=== PATIENT | male | born 1950 | race Caucasian/White ===

== ENCOUNTER → 2017-06-15 | Outpatient (CLI) | payer BC ==
[~2017-06-15] MED LIST: REGADENOSON 0.4 MG/5 ML SYRINGE ONE
== END | disposition home or self-care (01) ==
LOC: CFH 07:28
PROVIDERS: ATTEND Internal Medicine Cardiovascular Disease
DX: R07.89 Other chest pain (principal)
CPT/HCPCS: 78452; 93017; A9502; J2785

== ENCOUNTER 2018-03-15 13:33 | Emergency (ER) | payer BC ==
[~2018-03-15] VITALS: Ht 190.5 cm; Wt 123.0 kg
[2018-03-15 15:33] LABS: BASOPHILS # (AUTO) 0.01 x10^3/uL (0-0.1); BASOPHILS % (AUTO) 0 % (0-1); EOSINOPHILS # (AUTO) 0.06 x10^3/uL (0-0.4); EOSINOPHILS % (AUTO) 1 % (1-7); LYMPHOCYTES # (AUTO) 0.84 x10^3/uL (1-3.4); LYMPHOCYTES % (AUTO) 12 % (22-44); MD NO; MEAN CORPUSCULAR HEMOGLOBIN 32.5 pg (27.5-34.5); MEAN CORPUSCULAR HGB CONC 33.9 g/dL (33.2-36.2); MEAN CORPUSCULAR VOLUME 96.1 fL (81-97); MEAN PLATELET VOLUME 8.1 fL (7.4-10.4); MONOCYTES # (AUTO) 0.29 x10^3/uL (0.2-0.8); MONOCYTES % (AUTO) 4 % (2-9); NEUTROPHILS # (AUTO) 5.66 x10^3/uL (1.8-6.8); NEUTROPHILS % (AUTO) 82 % (42-75); PLATELET COUNT 212 x10^3/uL (130-400); RED BLOOD COUNT 4.94 x10^6/uL (4.38-5.82); RED CELL DISTRIBUTION WIDTH 13.4 % (9.4-14.8)
[2018-03-15 15:35] LABS: ANION GAP 7 mmol/L (5-15); CHLORIDE 106 mmol/L (98-107); CREATININE 1.06 mg/dL (0.7-1.3)
[2018-03-15] MEDS ORDERED: OMNIPAQUE 350 MG/ML, 100ML BOTTLE ONE (16:00)
[2018-03-15 17:32] VITALS: BP 189/116
== END 2018-03-15 17:34 | disposition home or self-care (01) ==
LOC: ED 17:25
DX: R42 Dizziness and giddiness (principal); I10 Essential (primary) hypertension
CPT/HCPCS: 36415; 70450; 70496; 70498; 80048; 83735; 85025; 93005; 99285; Q9967

== ENCOUNTER 2018-03-18 18:29 | Inpatient (IN) | payer BC, MEDICARE ==
[~2018-03-18] VITALS: Ht 190.5 cm; Wt 121.1 kg
[2018-03-18] MEDS ORDERED: LABETALOL 20 MG/4 ML ONE (19:01)
[2018-03-18] MEDS ORDERED: LABETALOL 5MG/ML, 20ML IVPush STA (19:08)
[2018-03-18 19:51] LABS: BASOPHILS # (AUTO) 0.01 x10^3/uL (0-0.1); BASOPHILS % (AUTO) 0 % (0-1); EOSINOPHILS # (AUTO) 0.16 x10^3/uL (0-0.4); EOSINOPHILS % (AUTO) 2 % (1-7); LYMPHOCYTES # (AUTO) 1.37 x10^3/uL (1-3.4); LYMPHOCYTES % (AUTO) 14 % (22-44); MD NO; MEAN CORPUSCULAR HGB CONC 34.8 g/dL (33.2-36.2); MEAN CORPUSCULAR VOLUME 94.8 fL (81-97); MONOCYTES # (AUTO) 0.48 x10^3/uL (0.2-0.8); MONOCYTES % (AUTO) 5 % (2-9); NEUTROPHILS # (AUTO) 7.77 x10^3/uL (1.8-6.8); NEUTROPHILS % (AUTO) 79 % (42-75); PLATELET COUNT 238 x10^3/uL (130-400); RED BLOOD COUNT 5.07 x10^6/uL (4.38-5.82); RED CELL DISTRIBUTION WIDTH 13.3 % (9.4-14.8)
[2018-03-18 19:59] LABS: ALANINE AMINOTRANSFERASE 47 U/L (12-78); ALBUMIN 3.8 g/dL (3.4-5.0); ANION GAP 8 mmol/L (5-15); CALCIUM 9.3 mg/dL (8.5-10.1); CHLORIDE 108 mmol/L (98-107); CREATININE 1.17 mg/dL (0.7-1.3)
[2018-03-18 20:02] LABS: ALKALINE PHOSPHATASE 102 U/L (45-117); BILIRUBIN,TOTAL 1.1 mg/dL (0.2-1.0); TOTAL PROTEIN 7.4 g/dL (6.4-8.2)
[2018-03-18] MEDS ORDERED: hydrALAzine 20 MG/ML, 1ML IV ONE (20:30)
[2018-03-18 20:33] LABS: TROPONIN I < 0.015 ng/mL (0.000-0.045)
[2018-03-18] MEDS ORDERED: hydrALAzine 20 MG/ML, 1ML ONE (21:36)
[2018-03-18] MEDS ORDERED: LEVO125T5 PO (21:50)
[2018-03-18] MEDS ORDERED: LABE200T6 PO (21:50)
[2018-03-18] MEDS ORDERED: ATOR-2 PO (21:50)
[2018-03-18] MEDS ORDERED: OMEP40CA6 PO (21:50)
[2018-03-18] MEDS ORDERED: ASCO500C2 PO (21:50)
[2018-03-18] MEDS ORDERED: VITA100C8 PO (21:50)
[2018-03-18] MEDS ORDERED: CART1TAB4 PO (21:50)
[2018-03-18] MEDS ORDERED: TEMAZEPAM 15 MG CAPSULE PO PRN (22:00)
[2018-03-18] MEDS ORDERED: ACETAMINOPHEN 325 MG TABLET PO PRN (22:00)
[2018-03-18] MEDS ORDERED: ONDANSETRON 4 MG TABLET PO PRN (22:00)
[2018-03-18] MEDS ORDERED: DOCUSATE 100 MG CAPSULE PO PRN (22:00)
[2018-03-18 22:20] VITALS: BP 188/108
[2018-03-19] MEDS: ATORVASTATIN 80 MG TABLET PO SCH ×2 (01:05→20:34)
[2018-03-19 01:24] VITALS: BP 154/109
[2018-03-19 05:55] LABS: LDL/HDL RATIO 2.2 (0.5-3.0)
[2018-03-19 07:24] VITALS: BP 170/116
[2018-03-19] MEDS: OMEPRAZOLE 20 MG CAPSULE.DR PO SCH (09:19)
[2018-03-19] MEDS: ASPIRIN 81 MG TABLET CHEW PO/NG SCH (09:19)
[2018-03-19] MEDS: LEVOTHYROXINE 125 MCG TABLET PO SCH (09:20)
[2018-03-19] MEDS: LABETALOL 200 MG TABLET PO SCH ×2 (09:20→20:33)
[2018-03-19 14:00] VITALS: BP 193/133
[2018-03-19 15:50] VITALS: BP 193/133
[2018-03-19 16:48] VITALS: BP 152/103
[2018-03-19] MEDS: ENALAPRILAT 1.25 MG/ML, 2ML IV PRN (16:51)
[2018-03-19] MEDS ORDERED: IRBE150T25 PO (17:02)
[2018-03-19 19:22] VITALS: BP 158/108
[2018-03-19] MEDS: IRBESARTAN 150 MG TABLET PO SCH (20:34)
[2018-03-20 03:02] VITALS: BP 115/74
[2018-03-20 07:28] VITALS: BP 118/81
[2018-03-20] MEDS: IRBESARTAN 150 MG TABLET PO SCH ×2 (07:43→21:05)
[2018-03-20] MEDS: LEVOTHYROXINE 125 MCG TABLET PO SCH (07:44)
[2018-03-20] MEDS: OMEPRAZOLE 20 MG CAPSULE.DR PO SCH (07:44)
[2018-03-20] MEDS: LABETALOL 200 MG TABLET PO SCH ×2 (07:44→21:05)
[2018-03-20] MEDS: ASPIRIN 81 MG TABLET CHEW PO/NG SCH (07:44)
[2018-03-20 12:20] LABS: FREE T4 (FREE THYROXINE) 1.33 ng/dL (0.76-1.46)
[2018-03-20 13:03] VITALS: BP 198/130
[2018-03-20 15:50] VITALS: BP 178/89
[2018-03-20] MEDS: AMLODIPINE 2.5 MG TABLET PO SCH (16:40)
[2018-03-20 18:20] VITALS: BP 220/120
[2018-03-20] MEDS: ENALAPRILAT 1.25 MG/ML, 2ML IV PRN (18:42)
[2018-03-20 20:51] VITALS: BP 165/97
[2018-03-20] MEDS: ATORVASTATIN 80 MG TABLET PO SCH (21:04)
[2018-03-21] VITALS (14 sets, daily range): BP systolic 125–180; BP diastolic 80–134
[2018-03-21] MEDS: LABETALOL 200 MG TABLET PO SCH ×2 (08:47→20:54)
[2018-03-21] MEDS: AMLODIPINE 2.5 MG TABLET PO SCH (08:48)
[2018-03-21] MEDS: IRBESARTAN 150 MG TABLET PO SCH (08:49)
[2018-03-21] MEDS: OMEPRAZOLE 20 MG CAPSULE.DR PO SCH (08:50)
[2018-03-21] MEDS: ASPIRIN 81 MG TABLET CHEW PO/NG SCH (08:51)
[2018-03-21] MEDS: LEVOTHYROXINE 125 MCG TABLET PO SCH (08:52)
[2018-03-21] MEDS ORDERED: SPIRONOLACTONE 25 MG TABLET PO ONE (14:00)
[2018-03-21] MEDS ORDERED: AMLODIPINE 2.5 MG TABLET PO SCH (16:00)
[2018-03-21] MEDS: ATORVASTATIN 80 MG TABLET PO SCH (20:53)
[2018-03-22] VITALS (10 sets, daily range): BP systolic 122–180; BP diastolic 60–125
[2018-03-22 05:16] LABS: ANION GAP 8 mmol/L (5-15); CALCIUM 8.3 mg/dL (8.5-10.1); CHLORIDE 111 mmol/L (98-107); CREATININE 1.14 mg/dL (0.7-1.3)
[2018-03-22] MEDS ORDERED: AMLODIPINE 5 MG TABLET PO SCH (09:00)
[2018-03-22] MEDS: IRBESARTAN 150 MG TABLET PO SCH (09:58)
[2018-03-22] MEDS: OMEPRAZOLE 20 MG CAPSULE.DR PO SCH (10:00)
[2018-03-22] MEDS: LEVOTHYROXINE 125 MCG TABLET PO SCH (10:00)
[2018-03-22] MEDS: LABETALOL 200 MG TABLET PO SCH ×2 (10:01→22:05)
[2018-03-22] MEDS: ASPIRIN 81 MG TABLET CHEW PO/NG SCH (10:01)
[2018-03-22] MEDS: AMLODIPINE 5 MG TABLET PO SCH (10:01)
[2018-03-22] MEDS: SPIRONOLACTONE 25 MG TABLET PO SCH (10:01)
[2018-03-22] MEDS: ATORVASTATIN 80 MG TABLET PO SCH (22:05)
[2018-03-23] VITALS (9 sets, daily range): BP systolic 120–168; BP diastolic 11–110
[2018-03-23] MEDS: LABETALOL 200 MG TABLET PO SCH ×3 (08:30→22:05)
[2018-03-23] MEDS: SPIRONOLACTONE 25 MG TABLET PO SCH (08:30)
[2018-03-23] MEDS: ASPIRIN 81 MG TABLET CHEW PO/NG SCH (08:30)
[2018-03-23] MEDS: AMLODIPINE 5 MG TABLET PO SCH ×3 (08:30→20:53)
[2018-03-23] MEDS: LEVOTHYROXINE 125 MCG TABLET PO SCH (08:31)
[2018-03-23] MEDS: IRBESARTAN 150 MG TABLET PO SCH (08:31)
[2018-03-23] MEDS: OMEPRAZOLE 20 MG CAPSULE.DR PO SCH (08:31)
[2018-03-23] MEDS ORDERED: ENALAPRILAT 1.25 MG/ML, 2ML IV PRN (16:00)
[2018-03-23] MEDS: ATORVASTATIN 80 MG TABLET PO SCH (20:53)
[2018-03-24] VITALS (8 sets, daily range): BP systolic 100–170; BP diastolic 60–110
[2018-03-24 05:17] LABS: BASOPHILS # (AUTO) 0.02 x10^3/uL (0-0.1); BASOPHILS % (AUTO) 0 % (0-1); EOSINOPHILS # (AUTO) 0.29 x10^3/uL (0-0.4); EOSINOPHILS % (AUTO) 3 % (1-7); LYMPHOCYTES # (AUTO) 1.62 x10^3/uL (1-3.4); LYMPHOCYTES % (AUTO) 19 % (22-44); MD NO; MEAN CORPUSCULAR HEMOGLOBIN 32.6 pg (27.5-34.5); MEAN CORPUSCULAR HGB CONC 34.3 g/dL (33.2-36.2); MONOCYTES # (AUTO) 0.47 x10^3/uL (0.2-0.8); MONOCYTES % (AUTO) 6 % (2-9); NEUTROPHILS # (AUTO) 5.98 x10^3/uL (1.8-6.8); NEUTROPHILS % (AUTO) 71 % (42-75); PLATELET COUNT 197 x10^3/uL (130-400); RED BLOOD COUNT 4.67 x10^6/uL (4.38-5.82); RED CELL DISTRIBUTION WIDTH 13.5 % (9.4-14.8)
[2018-03-24 05:30] LABS: CALCIUM 9.1 mg/dL (8.5-10.1); CHLORIDE 111 mmol/L (98-107)
[2018-03-24 05:33] LABS: ANION GAP 10 mmol/L (5-15); CREATININE 1.16 mg/dL (0.7-1.3)
[2018-03-24] MEDS: LABETALOL 200 MG TABLET PO SCH ×3 (05:41→20:13)
[2018-03-24] MEDS: SPIRONOLACTONE 25 MG TABLET PO SCH (09:00)
[2018-03-24] MEDS: IRBESARTAN 150 MG TABLET PO SCH (09:00)
[2018-03-24] MEDS: AMLODIPINE 5 MG TABLET PO SCH ×2 (09:00→20:02)
[2018-03-24] MEDS: OMEPRAZOLE 20 MG CAPSULE.DR PO SCH (10:04)
[2018-03-24] MEDS: LEVOTHYROXINE 125 MCG TABLET PO SCH (10:04)
[2018-03-24] MEDS: ASPIRIN 81 MG TABLET CHEW PO/NG SCH (11:47)
[2018-03-24] MEDS: ATORVASTATIN 80 MG TABLET PO SCH (20:02)
[2018-03-25] VITALS (8 sets, daily range): BP systolic 96–172; BP diastolic 68–108
[2018-03-25] MEDS: LABETALOL 200 MG TABLET PO SCH (05:44)
[2018-03-25] MEDS: OMEPRAZOLE 20 MG CAPSULE.DR PO SCH (09:31)
[2018-03-25] MEDS: ASPIRIN 81 MG TABLET CHEW PO/NG SCH (09:31)
[2018-03-25] MEDS: LEVOTHYROXINE 125 MCG TABLET PO SCH (09:32)
[2018-03-25] MEDS: IRBESARTAN 150 MG TABLET PO SCH (10:27)
[2018-03-25] MEDS: AMLODIPINE 5 MG TABLET PO SCH ×2 (10:27→20:14)
[2018-03-25] MEDS: SPIRONOLACTONE 25 MG TABLET PO SCH (10:27)
[2018-03-25] MEDS: ATORVASTATIN 80 MG TABLET PO SCH (20:14)
[2018-03-25] MEDS: LABETALOL 100 MG TABLET PO SCH (20:14)
[2018-03-26] VITALS (9 sets, daily range): BP systolic 122–178; BP diastolic 80–110
[2018-03-26] MEDS: AMLODIPINE 5 MG TABLET PO SCH ×2 (09:26→21:16)
[2018-03-26] MEDS: LEVOTHYROXINE 125 MCG TABLET PO SCH (09:26)
[2018-03-26] MEDS: IRBESARTAN 150 MG TABLET PO SCH (09:26)
[2018-03-26] MEDS: ASPIRIN 81 MG TABLET CHEW PO/NG SCH (09:26)
[2018-03-26] MEDS: OMEPRAZOLE 20 MG CAPSULE.DR PO SCH (09:27)
[2018-03-26] MEDS: LABETALOL 100 MG TABLET PO SCH ×2 (09:27→21:17)
[2018-03-26] MEDS: SPIRONOLACTONE 25 MG TABLET PO SCH (09:27)
[2018-03-26] MEDS: ATORVASTATIN 80 MG TABLET PO SCH (21:16)
[2018-03-27 01:50] VITALS: BP 138/88
[2018-03-27 07:25] VITALS: BP 130/75
[2018-03-27] MEDS: SPIRONOLACTONE 25 MG TABLET PO SCH (08:41)
[2018-03-27] MEDS: IRBESARTAN 150 MG TABLET PO SCH (08:41)
[2018-03-27] MEDS: AMLODIPINE 5 MG TABLET PO SCH (08:41)
[2018-03-27] MEDS: ASPIRIN 81 MG TABLET CHEW PO/NG SCH (08:42)
[2018-03-27] MEDS: OMEPRAZOLE 20 MG CAPSULE.DR PO SCH (08:42)
[2018-03-27] MEDS: LEVOTHYROXINE 125 MCG TABLET PO SCH (08:42)
[2018-03-27] MEDS: LABETALOL 100 MG TABLET PO SCH (08:42)
[2018-03-27] MEDS ORDERED: AMLO5TAB7 PO (10:52)
[2018-03-27] MEDS ORDERED: SPIR25TA PO (10:52)
[2018-03-27] MEDS ORDERED: ASPI-515 PO/NG (10:52)
[2018-03-27] MEDS ORDERED: LABE100T6 PO (10:52)
== END 2018-03-27 12:47 | disposition home or self-care (01) | DRG 66 ==
LOC: ED 19:03 → EDIP 20:48 → 4WST 22:32 → 4EST 03-26 02:14 → DCLOUNGE 03-27 12:35
PROVIDERS: ADMIT Hospitalist; ATTEND Hospitalist
DX: I63.9 Cerebral infarction, unspecified (principal); I16.0 Hypertensive urgency; R29.810 Facial weakness; I65.23 Occlusion and stenosis of bilateral carotid arteries; Z79.82 Long term (current) use of aspirin; I10 Essential (primary) hypertension; E78.5 Hyperlipidemia, unspecified; E03.9 Hypothyroidism, unspecified; Z85.819 Personal history of malignant neoplasm of unspecified site of lip, oral cavity, and pharynx; Z86.73 Personal history of transient ischemic attack (TIA), and cerebral infarction without residual deficits; Z79.899 Other long term (current) drug therapy; R47.81 Slurred speech; Z83.6 Family history of other diseases of the respiratory system
CPT/HCPCS: 36415; 70450; 70551; 71046; 80048; 80053; 80061; 82088; 82533; 82962; 83835; 84244; 84439; 84443; 84484; 85025; 93005; 93306; 93880; 93975; 96374; 96375; G0378; J0360